=== PATIENT | male | born 1955 | race Caucasian/White ===

== ENCOUNTER 2022-05-05 10:02 | Outpatient (CLI) | payer OTHER ==
[2022-05-05 10:38] LABS: Actual Bicarbonate (HCO3a) 26.1 mEq/L (22-28); Base Excess (BEa) 1.7 mEq/L (-2.0 to +3.0); CO2 Tension 40.3 mmHg (35.0-45.0); Calcium, Ionized (arterial) 1.21 mmol/L (1.12-1.30); Carboxyhemoglobin (COHb) 0.6 gm% (0.0-3.0); O2 Tension (PaO2), arterial 89.1 mmHg (> 80.0); Potassium - ABG Lab 4.1 mmol/L (3.70-5.30); Puncture Site LRA; pH, Arterial 7.43 (7.35-7.45)
[2022-05-05 10:46] LABS: ALV-art Gradient 10.255 mmHg (0-20)
== END 2022-05-05 10:03 | disposition home or self-care (01) ==
LOC: CSHCP 10:02
PROVIDERS: ATTEND Internal Medicine Critical Care Medicine
DX: J44.9 Chronic obstructive pulmonary disease, unspecified (principal)
CPT/HCPCS: 36600; 82805; 94060; 94726; 94729; 94760

== ENCOUNTER 2022-11-03 07:26 | Outpatient (CLI) | payer OTHER | END 2022-11-03 07:27 | disposition home or self-care (01) | LOC: CSHULT 07:26 | DX: Z13.6 Encounter for screening for cardiovascular disorders (principal) | CPT/HCPCS: 93880 ==

== ENCOUNTER 2023-08-08 12:34 | Outpatient (CLI) | payer OTHER ==
[2023-08-08 13:18] LABS: Actual Bicarbonate (HCO3a) 21.9 mEq/L (22-28); Analyzer IN Cardio CS ER; Base Excess (BEa) -2.2 mEq/L (-2.0 to +3.0); CO2 Tension 35.8 mmHg (35.0-45.0); Calcium, Ionized (arterial) 1.18 mmol/L (1.12-1.30); Carboxyhemoglobin (COHb) 0.6 gm% (0.0-3.0); Hematocrit-ABG 45 % (42.0-52.0); Hemoglobin (Hb) 15.2 g/dL (14.0-18.0); O2 Tension (PaO2), arterial 78.9 mmHg (> 80.0); Potassium - ABG Lab 3.81 mmol/L (3.70-5.30); Puncture Site RRA; pH, Arterial 7.404 (7.35-7.45)
== END 2023-08-08 12:35 | disposition home or self-care (01) ==
LOC: CSHCP 12:34
PROVIDERS: ATTEND Internal Medicine Critical Care Medicine
DX: J44.9 Chronic obstructive pulmonary disease, unspecified (principal)
CPT/HCPCS: 36600; 82805; 94060; 94726; 94729; 94760